=== PATIENT | male | born 1965 | race Caucasian/White ===

== ENCOUNTER → 2021-05-24 | Outpatient (CLI) | payer BC ==
[~2021-05-24] MED LIST: HYDR50TA9 PO; LOSA100T14 PO; METO-247 PO; OMEP40CA7 PO; SERT50TA PO
[2021-05-24 13:23] LABS: BASO % 1 % (0-3); EOS # 0.1 x10^3/uL (0.0-0.7); EOS % 2 % (0-3); HEMATOCRIT 45.9 % (39.0-53.0); HEMOGLOBIN 16.2 g/dL (13.0-17.5); LYMPH # 1.6 x10^3/uL (1.0-4.8); LYMPH % 29 % (24-48); MEAN CORPUSCULAR HEMOGLOBIN 33 pg (25-35); MEAN CORPUSCULAR HGB CONC 35 g/dL (31-37); MEAN CORPUSCULAR VOLUME 95 fL (79-100); MONO # 0.4 x10^3/uL (0.0-1.1); MONO % 7 % (0-9); NEUT # 3.4 x10^3/uL (1.8-7.7); NEUT % 62 % (31-73); PLATELET COUNT 243 x10^3/uL (140-400); RED BLOOD COUNT 4.83 x10^6/uL (4.30-5.70); WHITE BLOOD COUNT 5.6 x10^3/uL (4.0-11.0)
[2021-05-24 13:56] LABS: ALBUMIN 3.7 g/dL (3.4-5.0); CALCIUM 8.9 mg/dL (8.5-10.1); CREATININE 0.6 mg/dL (0.7-1.3); GFR 139.4; TOTAL BILIRUBIN 0.5 mg/dL (0.2-1.0); TOTAL PROTEIN 7.3 g/dL (6.4-8.2)
== END ==
LOC: SURGPAT 13:00
PROVIDERS: ATTEND Specialist
DX: Z01.812 Encounter for preprocedural laboratory examination (principal); M54.16 Radiculopathy, lumbar region; M48.062 Spinal stenosis, lumbar region with neurogenic claudication
CPT/HCPCS: 36415; 80053; 85025

== ENCOUNTER 2021-05-29 08:42 | Day surgery (SDC) | payer BC ==
[2021-05-24 13:20] VITALS: BP 166/101
--- NOTE | 2021-05-28 23:11 | PREOP HP ---
DATE OF SERVICE: 05/29/2021 HISTORY OF PRESENT ILLNESS: The patient is referred because of a painful mass at the umbilical area. He states that it has been there for years, getting larger and causes it some pain at this time. It never goes away in his words. He has no GI symptoms. PAST MEDICAL HISTORY: Shows he takes medicine for hypertension and did have left inguinal hernia repair about 15 years ago. He states to have had some type of arrhythmia about 12 years ago and takes atenolol for that. He has not had any arrhythmia since and he does not have diabetes to his knowledge. ALLERGIES: He has no allergies. FAMILY HISTORY: Noncontributory. SOCIAL HISTORY: Shows that he does use marijuana at times and smokes maybe 1-4 cigarettes a week, does not use illicit drugs or drink. REVIEW OF SYSTEMS: Negative except for the umbilical pain at times. PHYSICAL EXAMINATION: GENERAL: Shows an alert male in no acute distress. HEAD, EYES, EARS, NOSE AND THROAT: Presenting grossly is normal. CHEST: Clear bilaterally to auscultation. HEART: At this point had no irregularities. The rate was 74 beats per minute. He had no murmurs, heaves, friction rubs or thrills. ABDOMEN: Soft. There was no organomegaly in this mildly obese male. He did have somewhat reddish mass at the umbilicus, did not appear to be infected however. The mass was about 4-5 inches in size and states that it never goes away. I cannot on physical examination define the fascia as we could not reduce the hernia. There was no gangrene. EXTREMITIES: Grossly normal. GENITALIA AND RECTAL: Not done. IMPRESSION: 1. Hypertension. 2. History of arrhythmia. 3. Incarcerated umbilical hernia. 4. Repaired left inguinal hernia. PLAN: He came and once this hernia fixed, he understands the ramifications of this and surgical repair would be the only way to reduce this. He understands that and understands the risks. He also understands and wishes to use mesh if it would give a better chance if this is not recurring. He wants to have this done and we will plan to have it done at a time that is satisfactory with him. TATIANNA DR: Sharron TID: [phone]
[~2021-05-29] VITALS: Ht 182.9 cm; Wt 135.5 kg
[~2021-05-29 08:42] MED LIST changes: +HYDROmorphone 2 MG/ML INJ. IVP PRN; +IV RINGERS,LACTATED 1000ML 1,000 ML IV SCH; +MORPHINE SULFATE 2 MG/ML INJ. IVP PRN; +PROCHLORPERAZINE 10 MG/2 ML VIAL. IVP PRN; +fentaNYL PF VIAL 100 MCG/2 ML VIAL IVP PRN
[2021-05-29 09:02] VITALS: BP 160/98
[2021-05-29] MEDS ORDERED: BUPIVACAINE-EPI 0.5% 30 ML VIAL KIT. ONE ×2 (09:11→12:41)
[2021-05-29] MEDS ORDERED: PROPOFOL 10 MG/ML (20ML) VIAL. IV ONE (09:25)
[2021-05-29] MEDS ORDERED: LIDOCAINE 2% PF 5 ML VIAL. ONE (09:26)
[2021-05-29] MEDS ORDERED: ONDANSETRON PF 4 MG/2 ML VIAL. ONE (09:26)
[2021-05-29] MEDS ORDERED: KETOROLAC 30 MG/ML VIAL. ONE (09:26)
[2021-05-29] MEDS ORDERED: DEXAMETHASONE SOD PHOS 4 MG/ML VIAL ONE (09:26)
[2021-05-29] MEDS ORDERED: FAMOTIDINE 20 MG/2 ML VIAL ONE (09:27)
[2021-05-29] MEDS ORDERED: fentaNYL PF VIAL 100 MCG/2 ML VIAL ONE (09:27)
[2021-05-29] MEDS ORDERED: NEOSTIGMINE METHYLSULFATE 5 MG/5 ML SYRINGE. ONE (09:29)
[2021-05-29] MEDS ORDERED: SUCCINYLCHOLINE 200 MG/10 ML VIAL. ONE (09:29)
[2021-05-29] MEDS ORDERED: ROCURONIUM 50 MG/5 ML VIAL. ONE ×2 (09:29→11:48)
[2021-05-29] MEDS ORDERED: GLYCOPYRROLATE 1 MG/5 ML VIAL. ONE (09:30)
--- NOTE | 2021-05-29 09:30 | NUR ---
Patient arrived to preop to prep for surgery. Upon interviewing the patient, he stated that he took morning medication around 0800 with a sip of orange juice. When questioned if orange juice had pulp in it, he stated "yes". After consulting with anesthesia, it was determined its ok to proceed with surgery as scheduled.
--- NOTE | 2021-05-29 10:54 | PDOC ---
SURGICAL PROGRESS NOTE DATE: 05/29/21 TIME: 10:53 No change in dictated H&P Vital Signs Vital Signs Date Time Temp Pulse Resp B/P (MAP) Pulse Ox O2 Delivery O2 Flow Rate FiO2 05/29/21 09:08 97.6 88 14 160/98 96 Room Air 97.6 Justicifation of Admission Dx: Justifications for Admission: Justification of Admission Dx: Yes REGLA BORDEN MD May 29, 2021 10:54
--- NOTE | 2021-05-29 10:56 | PDOC ---
SURGICAL PROGRESS NOTE DATE: 05/29/21 TIME: 10:54 Op Note: Surgeon...............................................Venu Pre op diag...........................................incarcerated umbilical hernia Post op diag.........................................same Anesthesia...........................................general Procedure............................................repair incarcerated ventral hernia and partial omentectomy Drains.................................................none Fluids.................................................see anesthesia sheet Blood loss............................................10cc Condition.............................................satisfactory Vital Signs Vital Signs Date Time Temp Pulse Resp B/P (MAP) Pulse Ox O2 Delivery O2 Flow Rate FiO2 05/29/21 09:08 97.6 88 14 160/98 96 Room Air 97.6 Justicifation of Admission Dx: Justifications for Admission: Justification of Admission Dx: Yes REGLA BORDEN MD May 29, 2021 10:56
[2021-05-29] MEDS ORDERED: DESFLURANE 61 TO 120 MINUTES IH ONE (12:03)
[2021-05-29] MEDS ORDERED: SEVOFLURANE 61 TO 120 MINUTES. IH ONE (12:04)
[2021-05-29] MEDS ORDERED: ceFAZolin SODIUM IV Push 1 GM VIAL. IVP ONE (12:59)
--- NOTE | 2021-05-29 13:27 | DISCH ---
DISCHARGE INSTRUCTIONS Condition on Discharge Condition on Discharge: Stable Activity After Discharge Activity Instructions for Disc: Avoid exertion Driving Instructions after Dis: Do not drive today Diet after Discharge Diet after Discharge: Clear Liquid Wound Incision Care Other wound/incision instructi: may shower and leave deressing on until seen in office Follow-Up Follow up with: Chandana and make appointment to see me in 10-14 days REGLA BORDEN MD May 29, 2021 13:27
[2021-05-29] MEDS ORDERED: IPRATRPIUM/ALBUTEROL 0.5/2.5MG 3 ML NEBU. ONE (13:49)
[2021-05-29] MEDS ORDERED: IPRATRPIUM/ALBUTEROL 0.5/2.5MG 3 ML NEBU. NEB ONE (14:00)
[2021-05-29] MEDS ORDERED: oxyCODONE/APAP 7.5/325 1 TAB TABLET PO ONE (15:00)
[2021-05-29 15:50] VITALS: BP 123/85
--- NOTE | 2021-05-30 12:34 | OP ---
DATE OF SURGERY: 05/29/2021 SURGEON: Mathew Lea MD PREOPERATIVE DIAGNOSIS: Incarcerated umbilical hernia. POSTOPERATIVE DIAGNOSIS: Incarcerated umbilical hernia. ANESTHESIA: General. PROCEDURE: Repair of incarcerated umbilical hernia and partial omentectomy. TECHNIQUE: Under general anesthesia, the patient was properly prepped and draped in routine fashion. This large gentleman had a large mass at the umbilicus, which we assumed was of a hernia. It was so large that we did not make the routine transverse incision as whatever was in the hernia was probably big and could not be handled through that. As such, a longitudinal incision was made from above the umbilicus, going around to the left side where the mass was and down to the midline below the umbilicus. This was done with a 15 blade. We slowly went into the subcutaneous with sharp dissection with Metzenbaum scissors and using Metzenbaum scissors and finger dissection, we identified the sac and it from the surrounding structures. It was quite large and we went down to the fascial defect, which was at the umbilicus. It was obvious that we could not reduce this the way it was. As such, we entered the sac, opened it and there was omentum there. I did not see any bowel. We tried to reduce, but could not as the opening was small and over the months I guess he has had a lot of omentum there. As such, it was decided to remove the omentum and we did this by clamping, cutting and cautery and tying with 2-0 and 0 silk sutures. The omentum removed was about 8 inches square and with fatty contents. Now, we could reduce the hernia and did reduce that and also kind of closed the sac, which were in fact was the peritoneum over the area that had been there. As such, we inspected the area, dissected some of the tissue in the preperitoneal space around the umbilicus using finger dissection and sharp dissection. As such, the peritoneal cavity was now closed as the peritoneum was closed and we placed a small umbilical patch in this area. We sutured it up to the anterior abdominal wall on the lateral right and left and superior and inferior, so that it was completely flat against the abdominal wall and we did this at the edges. This was done with 2-0 Prolene. We then proceeded to close the wound with #1 Prolene sutures and we did this with about 3 of them. We did incorporate the top portion of the mesh there in this. So, the mesh lay in the preperitoneal space, not in the abdominal cavity and the Seprafilm faced the peritoneum. We tied these sutures and all was well. We then anesthetized all the tissues around the hernia repair with the fascia and the muscles laterally. We did this with 0.5% Marcaine and epinephrine. We then inspected the areas and had a decision about whether to remove the excess skin. We decided not to as it was viable and when we closed it, it seemed that this would not be necessary. As such, we then used 4-0 Vicryl to cover the knots with the subcutaneous so that it would not be poking through the skin and then sutured the flaps down to the fascia and deep dermis. We did this on three or four occasions. The skin laid flat, the hernia reduced all well with no bleeding and no other abnormalities. We then closed the skin using a skin stapler. The procedure was now terminated as a sterile Tegaderm dressing was applied. The blood loss was about 10 mL. Fluids given can be obtained from the anesthesia sheet. No drains were used and the condition of the patient satisfactory as he has returned to the recovery room. STEPHEN/CAROL DR: Sharron TID: [id number]
--- NOTE | 2021-05-31 16:08 | PATHOLOGY ---
[facility] Accession Number: [id number] . 01 Material submitted: . hernia - OMENTUM AND HERNIA SAC . 01 Clinical history: . UMBILICAL HERNIA REPAIR INCARCERATED UMBILICAL HERNIA, PARTIAL OMENTECTOMY . 02 Diagnosis: Segments of fibromembranous tissue and omental adipose tissue, incarcerated umbilical hernia repair and partial omentectomy: - Hernia sac. - Omentum showing focal fibrosis, congestion, recent hemorrhage, and mild chronic inflammation. (JPM:lisa; 05/31/2021) S 05/31/2021 1254 Local . 02 Comment: There is no evidence of malignancy. (JPM:lisa; 05/31/2021) . 02 Electronically signed: . Lang Bermudez MD, Pathologist NPI- [id number] . 01 Gross description: . The specimen is received in formalin, labeled "Lang Redd, omentum and hernia sac". Received is a 10.0 x 7.5 x 4.0 cm aggregate of 4 irregularly-shaped sidhu-yellow, diffusely lobulated pieces of fibroadipose tissue. Sectioning reveals unremarkable fibrofatty cut surfaces devoid of any areas of calcification, hemorrhage or necrosis. Associate Relations Specialist sections are submitted in cassettes A1 through A5. . Also received is a single 4.7 x 0.9 x 0.8 cm, irregularly shaped, sidhu to merritt, dusky, fibrous and shaggy segments of soft tissue. Sectioning reveals unremarkable fibrous cut surfaces. Associate Relations Specialist sections are submitted in cassette A6. (JGG; 05/30/2021) JGG/JGG 05/30/2021 0931 Local . 02 Pathologist provided ICD-10: K65.9, K42.9 . 02 CPT . 422441, 416308 Specimen Comment: A courtesy copy of this report has been sent to [phone] Specimen Comment: Report sent to Specimen Comment: A duplicate report has been generated due to demographic updates. Performed at: 01 [facility] [address] [id number] MD Carter Mojica MD Phone: [phone] Performed at: [facility] [address] [place], [place] [id number] MD Lang Bermudez MD Phone: [phone]
== END 2021-05-29 16:03 | disposition home or self-care (01) ==
LOC: SURG 08:42
PROVIDERS: ATTEND Specialist
DX: K42.0 Umbilical hernia with obstruction, without gangrene (principal); I10 Essential (primary) hypertension; E78.00 Pure hypercholesterolemia, unspecified; I48.91 Unspecified atrial fibrillation; M19.90 Unspecified osteoarthritis, unspecified site; F32.9 Major depressive disorder, single episode, unspecified; F41.9 Anxiety disorder, unspecified; K21.9 Gastro-esophageal reflux disease without esophagitis; F17.210 Nicotine dependence, cigarettes, uncomplicated; Z98.890 Other specified postprocedural states; Z79.899 Other long term (current) drug therapy
CPT/HCPCS: 49587; 88302; 88305; 94640; 94660; A4930; A6258; A6402; C1781; J0330; J0690; J1100; J1885; J2405; J2704; J2710; J3010; J3490